=== PATIENT | male | born 1995 | race Caucasian/White ===

== ENCOUNTER 2019-07-08 16:48 | Emergency (ER) | payer OTHER ==
[~2019-07-08] VITALS: Ht 193 cm; Wt 77.0 kg
[2019-07-08] MEDS ORDERED: NS IV 1000 ML 1,000 ML IV SCH (17:33)
[2019-07-08] MEDS ORDERED: PROCHLORPERAZINE 10 MG/2ML INJ (COMPAZINE) IV ONE (17:45)
--- NOTE | 2019-07-08 17:59 | ED Headache ---
General Chief Complaint: Head/Cervical Problems Stated Complaint: MIGRAINE Nursing Triage Note: PT STATES HAVING A MIGRAINE THAT STARTED ABOUT 1300 TODAY. 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 HX OF MIGRAINES, STRESS FROM FINALS NOW. Nursing Sepsis Screen: No Definite Risk History of Present Illness Date Seen by Provider: July 08, 2019 Time Seen by Provider: 17:30 Initial Comments 24-year-old male presents for migraine that began at approximately 1300 today. He took Toradol 10 mg and Benadryl 75 mg at 1400. He is continuing to have nausea. Timing/Duration: 4-6 hours Severity/Quality: moderate Location: frontal, temporal Prior Headaches/Recent Trauma: no recent headache/trauma, occasional headaches Associated Symptoms: No loss of consciousness; nausea/vomiting; No nasal congestion, No nasal drainage, No sinus infection, No stiff neck, No vision changes, No weakness Allergies and Home Medications Allergies Coded Allergies: No Known Drug Allergies (Unverified , 07/08/19) Patient Home Medication List Home Medication List Reviewed: Yes Review of Systems Review of Systems Constitutional: no symptoms reported, see HPI Psychiatric/Neurological: See HPI, Headache All Other Systems Reviewed Negative Unless Noted: Yes Past Vgwssct-Ueuhkl-Ddvkrn Hx Past Med/Social Hx: Reviewed Nursing Past Med/Soc Hx Patient Social History Alcohol Use: Occasionally Uses Alcohol Beverage of Choice: Beer, Whiskey Recreational Drug Use: No Smoking Status: Never a Smoker Recent Foreign Travel: No Contact w/Someone Who Travel: No Recent Infectious Disease Expo: No Recent Hopitalizations: No Seasonal Allergies Seasonal Allergies: Yes Past Medical History Surgeries: No Respiratory: Yes (BRONCHITIS LAST YEAR) Neurological: Yes Headaches /Migraines Genitourinary: No Gastrointestinal: No Musculoskeletal: No Endocrine: No HEENT: No Cancer: No Psychosocial: No Integumentary: No Physical Exam Vital Signs Vital Signs - First Documented 07/08/19 17:20 Temp 36.6 Pulse 60 Resp 18 B/P (MAP) 139/83 (101) Pulse Ox 100 O2 Delivery Room Air Capillary Refill : Less Than 3 Seconds Height, Weight, BMI Height: '" Weight: lbs. oz. kg; 20.00 BMI Method: General Appearance: WD/WN, no apparent distress HEENT: PERRL/EOMI, normal ENT inspection, TMs normal, pharynx normal, photophobia Neck: non-tender, full range of motion, supple, normal inspection Cardiovascular: normal peripheral pulses, regular rate, rhythm Respiratory: chest non-tender, lungs clear, normal breath sounds Gastrointestinal: normal bowel sounds, non tender, soft Psychiatric: alert, oriented x 3, depressed affect Crainal Nerves: normal hearing, normal speech, PERRL Coordination/Gait: normal finger to nose, normal gait Skin: normal color, warm/dry Progress/Results/Core Measures Results/Orders My Orders Orders - GRAZYNA LACEY Ed Iv/Invasive Line Start (07/08/19 17:33) Ns Iv 1000 Ml (Sodium Chloride 0.9%) (07/08/19 17:33) Prochlorperazine Injection (Compazine In (07/08/19 17:45) Sumatriptan Tablet (Imitrex Tablet) (07/08/19 18:00) Medications Given in ED Current Medications Medications Dose Ordered Sig/Phong Route Start Time Stop Time Status Last Admin Dose Admin Prochlorperazine Edisylate 10 mg ONCE ONCE IV 07/08/19 17:45 07/08/19 17:46 DC 07/08/19 17:53 10 MG Sumatriptan Succinate 50 mg ONCE ONCE PO 07/08/19 18:00 07/08/19 18:01 DC 07/08/19 18:11 50 MG Vital Signs/I&O 07/08/19 07/08/19 07/08/19 17:20 18:11 19:03 Temp 36.6 36.6 36.6 Pulse 60 78 Resp 18 18 B/P (MAP) 139/83 (101) 141/82 (101) Pulse Ox 100 100 O2 Delivery Room Air Blood Pressure Mean: 101 Progress Progress Note : Time: 17:30 Progress Note Patient seen and evaluated, will give normal saline 1 L per IV and Compazine 10 mg IV. Imitrex one dose. 181 patient resting in no distress with eyes closed. 184 patient reports migraine is improving. Discharge instructions and return precautions reviewed with him. Departure Impression Primary Impression: Migraine Qualified Codes: G43.119 - Migraine with aura, intractable, without status migrainosus Disposition: 01 HOME, SELF-CARE Condition: Improved Departure-Patient Inst. Decision time for Depature: 18:30 Patient Instructions: Migraine Headache (DC) Add. Discharge Instructions: Follow-up with your primary care provider if symptoms continue or migraines become more regular. Use Excedrin migraine at immediate onset of migraine. Drink 16 ounces of water every 2-3 hours while awake. Return to the emergency department for new, urgent health care needs. All discharge instructions reviewed with patient and/or family. Voiced understanding. GRAZYNA LACEY July 08, 2019 17:59
[2019-07-08] MEDS ORDERED: SUMAtriptan 50 MG (IMITREX) TAB PO ONE (18:00)
[2019-07-08 19:03] VITALS: BP 141/82
== END 2019-07-08 19:03 | disposition home or self-care (01) ==
LOC: ER 16:51
DX: G43.909 Migraine, unspecified, not intractable, without status migrainosus (principal)
CPT/HCPCS: 96361; 96374